=== PATIENT | female | born 1950 | race Caucasian/White ===

== ENCOUNTER → 2018-01-02 | Outpatient (CLI) | payer MEDICARE | LOC: CFH 10:35 | PROVIDERS: ATTEND Licensed Practical Nurse | DX: Z13.820 Encounter for screening for osteoporosis (principal); Z12.31 Encounter for screening mammogram for malignant neoplasm of breast; M85.88 Other specified disorders of bone density and structure, other site; N95.8 Other specified menopausal and perimenopausal disorders | CPT/HCPCS: 77080; 77067 ==

== ENCOUNTER → 2018-03-25 | Outpatient (CLI) | payer MEDICARE ==
[2018-03-25 14:35] LABS: C-REACTIVE PROTEIN, QUANT < 0.02 mg/dL (0.02-0.49)
== END | disposition home or self-care (01) ==
LOC: LAB 13:44
PROVIDERS: ATTEND Family Medicine
DX: R41.89 Other symptoms and signs involving cognitive functions and awareness (principal); G30.9 Alzheimer's disease, unspecified
CPT/HCPCS: 36415; 82607; 84439; 84443; 84480; 85651; 86140; 86430; 86592; 86780

== ENCOUNTER → 2018-06-17 | Outpatient (CLI) | payer MEDICARE | END | disposition home or self-care (01) | LOC: CFH 10:39 | PROVIDERS: ATTEND Nurse Practitioner Family | DX: I67.82 Cerebral ischemia (principal); R90.82 White matter disease, unspecified; L72.3 Sebaceous cyst | CPT/HCPCS: 70551 ==

== ENCOUNTER → 2019-07-24 | Outpatient (CLI) | payer MEDICARE | END | disposition home or self-care (01) | LOC: CFH 14:38 | PROVIDERS: ATTEND Nurse Practitioner Family | DX: G31.89 Other specified degenerative diseases of nervous system (principal); L72.3 Sebaceous cyst; J34.89 Other specified disorders of nose and nasal sinuses; F03.90 Unspecified dementia, unspecified severity, without behavioral disturbance, psychotic disturbance, mood disturbance, and anxiety | CPT/HCPCS: 70551 ==

== ENCOUNTER 2019-11-01 12:56 | Inpatient (IN) | payer MEDICARE ==
[~2019-11-01] VITALS: Ht 160 cm; Wt 70.9 kg
[2019-11-01] MEDS ORDERED: SODIUM CHLORIDE FLUSH 10ML SYR IVF ONE (13:30)
[2019-11-01 13:56] LABS: BASOPHILS # (AUTO) 0.02 x10^3/uL (0-0.1); BASOPHILS % (AUTO) 0 % (0-1); EOSINOPHILS # (AUTO) 0.09 x10^3/uL (0-0.4); EOSINOPHILS % (AUTO) 2 % (1-7); LYMPHOCYTES # (AUTO) 1.36 x10^3/uL (1-3.4); LYMPHOCYTES % (AUTO) 22 % (22-44); MD NO; MEAN CORPUSCULAR HEMOGLOBIN 31.8 pg (27.0-34.8); MEAN CORPUSCULAR HGB CONC 33.9 g/dL (32.4-35.8); MEAN CORPUSCULAR VOLUME 93.9 fL (80-100); MEAN PLATELET VOLUME 8.4 fL (7.4-10.4); MONOCYTES # (AUTO) 0.36 x10^3/uL (0.2-0.8); MONOCYTES % (AUTO) 6 % (2-9); NEUTROPHILS # (AUTO) 4.37 x10^3/uL (1.8-6.8); NEUTROPHILS % (AUTO) 71 % (42-75); PLATELET COUNT 254 x10^3/uL (130-400); RED CELL DISTRIBUTION WIDTH 13.4 % (9.6-15.2)
[2019-11-01 13:58] LABS: ALANINE AMINOTRANSFERASE 22 U/L (12-78); ALBUMIN 3.9 g/dL (3.4-5.0); ANION GAP 6 mmol/L (5-15); CALCIUM 9.4 mg/dL (8.5-10.1); CHLORIDE 110 mmol/L (98-107); CREATININE 0.65 mg/dL (0.55-1.02)
[2019-11-01 14:01] LABS: ALKALINE PHOSPHATASE 118 U/L (45-117); BILIRUBIN,TOTAL 0.6 mg/dL (0.2-1.0); TOTAL PROTEIN 7.2 g/dL (6.4-8.2)
--- NOTE | 2019-11-01 14:39 | NUR ---
task rn: pt straight cathed for ua, ua walked to lab. pt was c/o incr frequ/urin incontinence occasionally. [facility] notified. sahm was in room for reeval. poc explained to pt/. vss. call bautista in reach. as
[2019-11-01 14:45] LABS: MICROSCOPIC NOT IND
[2019-11-01 14:48] LABS: CULTURE INDICATED? NO
--- NOTE | 2019-11-01 15:21 | NUR ---
ATTEMPT TO AMBULATE PT SHE REMAINS WEAK AND UNSTEADY ERP AWARE AND THEN TO THE BS PT IS ALSO MILDLY CONFUSED
[2019-11-01] MEDS ORDERED: SODIUM CHLORIDE FLUSH 10ML SYR IVF PRN (15:30)
[2019-11-01] MEDS ORDERED: ACETAMINOPHEN 325 MG TABLET PO PRN (16:00)
[2019-11-01] MEDS: SODIUM CHLORIDE 0.9% 1,000 ML IV SCH (17:49)
[2019-11-01 19:07] VITALS: BP 121/54
[2019-11-01] MEDS: ENOXAPARIN 40 MG/0.4 ML SQ SCH (21:00)
[2019-11-01] MEDS: CEFTRIAXONE PMX 2GM/50ML 50 ML IV SCH (21:00)
[2019-11-02 01:42] VITALS: BP 137/77
[2019-11-02] MEDS: SODIUM CHLORIDE 0.9% 1,000 ML IV SCH (04:38)
[2019-11-02 05:32] LABS: BASOPHILS # (AUTO) 0.03 x10^3/uL (0-0.1); BASOPHILS % (AUTO) 1 % (0-1); EOSINOPHILS # (AUTO) 0.11 x10^3/uL (0-0.4); EOSINOPHILS % (AUTO) 2 % (1-7); LYMPHOCYTES # (AUTO) 1.51 x10^3/uL (1-3.4); LYMPHOCYTES % (AUTO) 27 % (22-44); MD NO; MEAN CORPUSCULAR HEMOGLOBIN 31.7 pg (27.0-34.8); MEAN CORPUSCULAR HGB CONC 33.6 g/dL (32.4-35.8); MEAN CORPUSCULAR VOLUME 94.4 fL (80-100); MEAN PLATELET VOLUME 8.5 fL (7.4-10.4); MONOCYTES # (AUTO) 0.33 x10^3/uL (0.2-0.8); MONOCYTES % (AUTO) 6 % (2-9); NEUTROPHILS # (AUTO) 3.68 x10^3/uL (1.8-6.8); NEUTROPHILS % (AUTO) 65 % (42-75); PLATELET COUNT 228 x10^3/uL (130-400); RED BLOOD COUNT 4.28 x10^6/uL (3.82-5.3); RED CELL DISTRIBUTION WIDTH 13.6 % (9.6-15.2)
[2019-11-02 05:42] LABS: ANION GAP 7 mmol/L (5-15); CALCIUM 9.1 mg/dL (8.5-10.1); CHLORIDE 113 mmol/L (98-107); CREATININE 0.71 mg/dL (0.55-1.02)
[2019-11-02 07:33] VITALS: BP 159/80
[2019-11-02] MEDS: LISINOPRIL 20 MG TABLET PO SCH (09:28)
[2019-11-02 13:25] VITALS: BP 115/73
[2019-11-02 19:17] VITALS: BP 105/66
[2019-11-02 19:47] VITALS: BP 99/61
[2019-11-02 19:50] VITALS: BP 144/84
[2019-11-02] MEDS: ENOXAPARIN 40 MG/0.4 ML SQ SCH (20:19)
[2019-11-02] MEDS: CEFTRIAXONE PMX 2GM/50ML 50 ML IV SCH (21:05)
[2019-11-03] VITALS (7 sets, daily range): BP systolic 103–165; BP diastolic 67–87
[2019-11-03] MEDS: SODIUM CHLORIDE 0.9% 1,000 ML IV SCH ×2 (04:15→14:46)
[2019-11-03] MEDS: LISINOPRIL 20 MG TABLET PO SCH (09:39)
[2019-11-03] MEDS ORDERED: LISI-170 PO (15:51)
[2019-11-03] MEDS ORDERED: ATOR40TA78 PO (16:07)
[2019-11-03] MEDS ORDERED: ASPI-515 PO (16:07)
== END 2019-11-03 17:43 | disposition home or self-care (01) | DRG 884 ==
LOC: ED 15:57 → EDIP 16:24 → 3N 17:21
PROVIDERS: ADMIT Hospitalist; ATTEND Hospitalist
PROC: 0T9B70Z Drainage of Bladder with Drainage Device, Via Natural or Artificial Opening (ICD-10-PCS; principal; 2019-11-01)
DX: F03.90 Unspecified dementia, unspecified severity, without behavioral disturbance, psychotic disturbance, mood disturbance, and anxiety (principal); F09 Unspecified mental disorder due to known physiological condition; I10 Essential (primary) hypertension; L72.3 Sebaceous cyst; Z79.899 Other long term (current) drug therapy; Z81.8 Family history of other mental and behavioral disorders; Z86.73 Personal history of transient ischemic attack (TIA), and cerebral infarction without residual deficits; Z88.0 Allergy status to penicillin; Y93.89 Activity, other specified; Y92.89 Other specified places as the place of occurrence of the external cause; Y99.8 Other external cause status
CPT/HCPCS: 36415; 70450; 71045; 80048; 80053; 81003; 82607; 83735; 84145; 84443; 85025; 87086; 93005; 93306; G0378; J0696; J1650; J7030